=== PATIENT | male | born 1995 | race African-American/Black ===

== ENCOUNTER 2017-06-10 00:55 | Emergency (ER) | payer SELFPAY ==
[~2017-06-10] VITALS: Ht 170.2 cm; Wt 94.0 kg
[2017-06-10 01:00] VITALS: BP 140/78; PULSE 67; RESP 16; TEMP 98.3; O2SAT 99
[2017-06-10] MEDS ORDERED: PENICILLIN G BENZATHINE 1,200,000 UNITS/2 ML SYRINGE IM ONE (01:15)
--- NOTE | 2017-06-10 01:16 | PD ---
HPI Chief Complaint: ENT Complaint Time Seen by Provider: 01:06 Travel History International Travel<30 days: No Contact w/Intl Traveler<30days: No Traveled to known affect area: No History of Present Illness HPI Patient 22-year-old male presents emergency department with sore throat, no cough no congestion he states he has had her history of recurrent tonsillitis and wants to make sure he does not have it again, states chills without fevers. Symptoms mild for the past few days, gradually worsening, not associated with any difficulty swallowing context and associated signs and symptoms as above. PFSH Past Medical History Medical History: Denies Significant Hx Influenza Vaccination: No Past Surgical History Surgical History: No Previous Surgery Social History Alcohol Use: Yes ("OCCASIONALLY") Tobacco Use: No Substance Use: No Allergies-Medications (Allergen,Severity, Reaction): Coded Allergies: No Known Allergies (Unverified , 06/10/17) Review of Systems Except as stated in HPI: all other systems reviewed are Neg Physical Exam Narrative GENERAL: Well-nourished, well-developed patient. SKIN: Focused skin assessment warm/dry. HEAD: Normocephalic. EYES: No scleral icterus. No injection or drainage. ENT: Mildly engorged purulent tonsils, airway widely patent, no anterior lymphadenopathy in cervical region. TMs clear bilaterally. NECK: Supple, trachea midline. No JVD or lymphadenopathy. CARDIOVASCULAR: Regular rate and rhythm without murmurs, gallops, or rubs. RESPIRATORY: Breath sounds equal bilaterally. No accessory muscle use. GASTROINTESTINAL: Abdomen soft, non-tender, nondistended. MUSCULOSKELETAL: No cyanosis, or edema. BACK: Nontender without obvious deformity. No CVA tenderness. Data Data Last Documented VS Orders Orders Penicillin G Benzathine Inj (Bicillin L- (06/10/17 01:15) Ed Discharge Order (06/10/17 01:22) [facility] Medical Decision Making Medical Screen Exam Complete: Yes Emergency Medical Condition: Yes Differential Diagnosis Tonsillitis, streptococcal pharyngitis, tonsillar abscess unlikely, peritonsillar abscess unlikely. Narrative Course Patient room to the emergency department, symptoms consistent with a mild tonsillitis, consider streptococcal pharyngitis. Will cover with Bicillin. Discussed follow-up with an ear nose throat doctor and his regular physician. Stable for discharge Diagnosis Primary Impression: Tonsillitis Disposition: 01 DISCHARGE HOME Condition: Stable Luu,Dickson J MD Jun 10, 2017 01:15
== END 2017-06-10 01:30 | disposition home or self-care (01) ==
LOC: NEPE 00:55
DX: J03.90 Acute tonsillitis, unspecified (principal)
CPT/HCPCS: 96372; 99283; J0561